=== PATIENT | male | born 1955 | race Hispanic/Latino ===

== ENCOUNTER 2016-09-15 20:26 | Emergency (ER) | payer SELFPAY ==
[2016-09-15] MEDS ORDERED: Erythromycin Base 0.5% Oint 1 GM TUBE ONE (20:46)
[2016-09-15] MEDS ORDERED: Ibuprofen 200 MG TAB ONE (20:49)
[2016-09-15] MEDS ORDERED: Acetaminophen 325 MG TAB ONE (20:49)
== END 2016-09-15 21:01 | disposition home or self-care (01) ==
LOC: NAV ERS 20:26
DX: H10.9 Unspecified conjunctivitis (principal); I10 Essential (primary) hypertension
CPT/HCPCS: 99283

== ENCOUNTER 2017-09-30 20:12 | Emergency (ER) | payer SELFPAY ==
[2017-09-30] MEDS ORDERED: acetaZOLAMIDE Sodium 500 mg Vial ONE ×2 (21:32→22:20)
[2017-09-30] MEDS ORDERED: Sterile Water 100 ML ONE (22:29)
== END 2017-09-30 22:50 | disposition home or self-care (01) ==
LOC: NAV ERS 20:12
DX: H40.052 Ocular hypertension, left eye (principal); I10 Essential (primary) hypertension
CPT/HCPCS: 96374; J1120

== ENCOUNTER 2018-07-28 22:42 | Emergency (ER) | payer SELFPAY ==
[2018-07-28 23:02] LABS: #Basophils 0.1 thou/uL (0.0-0.2); #Eosinphils 0.4 thou/uL (0.0-0.7); #Lymphocytes 2.6 thou/uL (1.20-3.40); #Monocytes 0.8 thou/uL (0.11-0.59); #Neutrophils 5.1 thou/uL (1.40-6.50); %Basophils 0.7 % (0.0-1.0); %Lymphocytes 28.6 % (21.0-51.0); %Monocytes 8.8 % (0.0-10.0); %Neutrophils 56.9 % (42.0-75.0); Hemoglobin 14.7 g/dL (14.0-18.0); Mean Corpuscular HGB CONC 32.3 g/dL (32.0-36.0); Mean Corpuscular Hemoglobin 28.6 pg (27.0-31.0); Mean Corpuscular Volume 88.5 fL (78.0-98.0); Mean Platelet Volume 7.7 fL (7.4-10.4); Platelet Count 223 thou/uL (130-400); RBC Distribution Width 12.9 % (11.5-14.5); Red Blood Cell (RBC) Count 5.14 mill/uL (4.70-6.10); White Blood Cell (WBC) Count 8.9 thou/uL (4.8-10.8)
[2018-07-28] MEDS ORDERED: Ketorolac Tromethamine 30 MG/ML VIAL ONE (23:06)
[2018-07-28] MEDS ORDERED: Ondansetron PF 4 MG/2 ML Vial ONE (23:08)
[2018-07-28] MEDS ORDERED: Pantoprazole 40 MG VIAL ONE (23:16)
[2018-07-28] MEDS ORDERED: Promethazine HCl 25 MG/ML VIAL ONE (23:16)
[2018-07-28] MEDS ORDERED: Sodium Chloride 0.9% 1,000 ML ONE (23:16)
[2018-07-28 23:24] LABS: ALT (SGPT) 18 U/L (8-55); AST (SGOT) 20 U/L (5-34); Albumin 4.2 g/dL (3.5-5.0); Alkaline Phosphatase 130 U/L (40-150); Anion Gap 14 mmol/L (10-20); BUN (Urea Nitrogen) 12 mg/dL (8.4-25.7); Bilirubin, Total 0.4 mg/dL (0.2-1.2); CK (CPK) 78 U/L (30-200); Calc. Creatinine Clearance 0 mL/min (70-130); Carbon Dioxide 25 mmol/L (22-29); Chloride 104 mmol/L (98-107); Estimated GFR-MDRD 77; Globulin 2.6 g/dL (2.4-3.5); Glucose 114 mg/dL (70-105); Lipase 27 U/L (8-78); Potassium 3.7 mmol/L (3.5-5.1); Protein, Total 6.8 g/dL (6.0-8.3); Sodium 139 mmol/L (136-145)
[2018-07-29] MEDS ORDERED: Ondansetron PF 4 MG/2 ML Vial ONE (00:04)
--- NOTE | 2018-07-29 08:21 | RAD ---
ACUTE ABDOMINAL SERIES: INDICATION: Right upper quadrant pain after eating fajitas. FINDINGS: Lungs are clear. Heart size at upper limits of normal. No pneumoperitoneum is noted. Bowel gas pat tern is unobstructed. There is a prominent amount of retained stool within the colon. IMPRESSION: Prominent amount of retained stool within the colon. POS: BH
== END 2018-07-29 00:55 | disposition short-term general hospital (02) ==
LOC: NAV ERS 22:42
DX: R10.11 Right upper quadrant pain (principal); R00.1 Bradycardia, unspecified
CPT/HCPCS: 74022; 80053; 82550; 83690; 84484; 85025; 93005; 94760; 96361; 96365; 96375; 96376; C9113; J1885; J2405; J2550; J7050

== ENCOUNTER 2018-11-21 22:36 | Emergency (ER) | payer SELFPAY ==
[2018-11-21] MEDS ORDERED: Gentamicin Ophth Soln 0.3% 5 ml Bottle ONE (23:01)
== END 2018-11-21 23:17 | disposition home or self-care (01) ==
LOC: NAV ERS 22:36
DX: H10.9 Unspecified conjunctivitis (principal); E78.5 Hyperlipidemia, unspecified; E78.00 Pure hypercholesterolemia, unspecified; Z87.891 Personal history of nicotine dependence
CPT/HCPCS: 99282